=== PATIENT | female | born 1980 | race Hispanic/Latino ===

== ENCOUNTER 2020-02-03 18:14 | Emergency (ER) | payer OTHER ==
[2020-02-03 18:41] LABS: Bacteria/HPF 1+ HPF (None Seen); Bilirubin Negative (Negative); Blood, Urine 1+ (Negative); Clarity Clear (Clear); Glucose, Urine (Dipstick) Normal (Negative); Leukocyte 25 Leu/uL (Negative); Nitrite Negative (Negative); Protein, Urine (Dipstick) Negative (Neg-Trace); Squamous Epithelial 0-3 HPF (0-3); Urobilinogen Normal mg/dL (Less than 2); WBC/HPF 0-3 HPF (0-3)
[2020-02-03 19:05] LABS: #Basophils 0.1 thou/uL (0.0-0.2); #Eosinphils 0.1 thou/uL (0.0-0.7); #Lymphocytes 1.1 thou/uL (1.20-3.40); #Monocytes 0.8 thou/uL (0.11-0.59); #Neutrophils 12.7 thou/uL (1.40-6.50); %Basophils 0.4 % (0.0-1.0); %Eosinophils 0.3 % (0.0-10.0); %Lymphocytes 7.7 % (21.0-51.0); %Monocytes 5.5 % (0.0-10.0); %Neutrophils 86.1 % (42.0-75.0); Hemoglobin 14.6 g/dL (12.0-16.0); Mean Corpuscular HGB CONC 35.1 g/dL (32.0-36.0); Mean Corpuscular Hemoglobin 32.3 pg (27.0-31.0); Mean Platelet Volume 6.4 fL (7.4-10.4); Platelet Count 340 thou/uL (130-400); RBC Distribution Width 11.2 % (11.5-14.5); Red Blood Cell (RBC) Count 4.51 mill/uL (4.20-5.40); White Blood Cell (WBC) Count 14.8 thou/uL (4.8-10.8)
[2020-02-03 19:31] LABS: ALT (SGPT) 12 U/L (8-55); AST (SGOT) 15 U/L (5-34); Alkaline Phosphatase 87 U/L (40-110); Anion Gap 12 mmol/L (10-20); BUN (Urea Nitrogen) 13 mg/dL (7.0-18.7); Bilirubin, Total 0.8 mg/dL (0.2-1.2); Calc. Creatinine Clearance 0 mL/min (70-130); Calcium 9.2 mg/dL (7.8-10.44); Carbon Dioxide 24 mmol/L (22-29); Chloride 101 mmol/L (98-107); Estimated GFR-MDRD 55; Globulin 2.9 g/dL (2.4-3.5); Glucose 123 mg/dL (70-105); Potassium 3.7 mmol/L (3.5-5.1); Protein, Total 6.9 g/dL (6.0-8.3); Sodium 133 mmol/L (136-145)
[2020-02-03 20:49] LABS: Pregnancy Test - Urine (BHCG) Negative (Negative)
[2020-02-03 20:50] LABS: Pregu Control Background? CLEAR/WHITE (CLR/WHITE); Pregu Control Bar Appear? YES (CONTROL BAR); Specific Gravity 1.012 (1.002-1.036)
[2020-02-03] MEDS ORDERED: Ondansetron PF 4 MG/2 ML Vial ONE (20:53)
[2020-02-03] MEDS ORDERED: Ketorolac Tromethamine 30 MG/ML VIAL ONE (20:53)
--- NOTE | 2020-02-03 21:20 | CT ---
CT Stone Protocol 02/03/2020 8:25 PM HISTORY: Left flank pain. COMPARISON: None. Technique: Multiple contiguous axial CT images are obtained through the abdomen and pelvis without IV contrast. Coronal reformats are provided. FINDINGS: This examination is limited for the evaluation of solid organs and vascular structures due to the lac k of intravenous contrast. Lower Chest: Lung bases are clear. Abdomen: Liver: Grossly normal non-enhanced CT appearance. Gallbladder: Suggestion of mild increased attenuation within the gallbladder lumen which could be rel ated to sludge or gallbladder calculi. Pancreas: Grossly normal nonenhanced CT appearance. Spleen: Grossly normal nonenhanced CT appearance. Adrenals: Grossly normal nonenhanced CT appearance. Kidneys: Mild left hydronephrosis and left perinephric stranding. Mild caliectasis is present on the right. Ureters: Left hydroureter with a 3 mm calculus at the left UVJ. No right ureteral calculus is seen.. Pelvis: Urinary bladder: within normal limits. Reproductive Organs: A T-shaped intrauterine contraceptive device is noted in place. Lymph Nodes: No enlarged lymph nodes. Bowel: Small amount retained fecal material seen throughout the colon. Appendix: The appendix is normal in caliber. Peritoneum: No free fluid, free air, or fluid collection. Retroperitoneum: Incidental note is made of a circumaortic left renal vein. Vessels: Minimal vascular calcifications are seen in the iliac arteries and infrarenal abdominal aort a.. Abdominal Wall: within normal limits. Bones: Degenerative changes are seen at the lumbosacral junction with endplate degenerative changes a nd vacuum phenomenon seen in the intervertebral disc. Slight retrolisthesis of L5 on S1 is present. IMPRESSION: 1. Partially obstructing left UVJ calculus with left hydronephrosis and hydroureter and perinephric s tranding on the left. 2. No right renal or ureteral calculus is seen. There is mild caliectasis on the right.
== END 2020-02-03 21:58 | disposition home or self-care (01) ==
LOC: ERS 18:14
DX: N13.2 Hydronephrosis with renal and ureteral calculous obstruction (principal); Z79.899 Other long term (current) drug therapy
CPT/HCPCS: 36415; 74176; 80053; 81003; 81015; 81025; 84702; 85025; 96361; 96374; 96375; J1885; J2405

== ENCOUNTER 2021-04-06 09:01 | Outpatient (CLI) | payer BC | END 2021-04-06 09:02 | disposition home or self-care (01) | LOC: NM 09:01 | PROVIDERS: ATTEND Internal Medicine Endocrinology, Diabetes & Metabolism | DX: E03.9 Hypothyroidism, unspecified (principal); E05.00 Thyrotoxicosis with diffuse goiter without thyrotoxic crisis or storm | CPT/HCPCS: 78014; A9516 ==

== ENCOUNTER 2021-05-05 11:51 | Outpatient (CLI) | payer BC ==
[2021-05-05 12:23] LABS: BHCG - Serum Negative (NEGATIVE); Pregs Control Background? CLEAR/WHITE (CLR/WHITE); Pregs Control Bar Appear? YES (CONTROL BAR)
== END 2021-05-05 11:52 | disposition home or self-care (01) ==
LOC: NM 11:51
PROVIDERS: ATTEND Internal Medicine Endocrinology, Diabetes & Metabolism
DX: Z32.00 Encounter for pregnancy test, result unknown (principal); E05.90 Thyrotoxicosis, unspecified without thyrotoxic crisis or storm
CPT/HCPCS: 79005; 84703; A9517

== ENCOUNTER 2023-10-11 14:34 | Outpatient (CLI) | payer BC | END 2023-10-11 14:35 | disposition home or self-care (01) | LOC: BICRAD 14:34 | PROVIDERS: ATTEND Physician Assistant | DX: R07.89 Other chest pain (principal) | CPT/HCPCS: 71046 ==